=== PATIENT | female | born 1970 | race American Indian/Alaskan Native ===

== ENCOUNTER 2016-11-01 13:53 | Emergency (ER) | payer OTHER ==
[2016-11-01] MEDS ORDERED: TETRACAINE 0.5% OU ONE (20:35)
[2016-11-01] MEDS ORDERED: FUL-GLO OP ONE (20:35)
[2016-11-01 20:47] VITALS: BP 156/98
--- NOTE | 2016-11-01 21:54 | Emergency Department Report ---
HPI - General Chief Complaint: Eye Problems Time Seen by Provider: 11/01/16 20:20 - HPI HPI: 46-year-old female presents today with right eye redness 6 days. Positive for tearing and clumping in the morning. She denies injury or trauma. Tried Clear Eyes without relief. Positive for history of similar symptoms and its pinkeye. Denies sick contacts. Denies pruritus or visual changes. Denies fever, chills, nausea, vomiting, chest pain, shortness of breath, abdominal pain. Patient does not wear contact lenses. ED Past Medical Hx - Past Medical History Hx Hypertension: Yes - Surgical History Past Surgical History?: No - Social History Smoking Status: Never Smoker Substance Use Type: None - Medications Home Medications: Home Medications Medication Instructions Recorded Confirmed Last Taken Type Ofloxacin 0.3% [Ocuflox] 1 - 2 drops OP QID #1 bottle 11/01/16 Unknown Rx ED Review of Systems ROS: Stated complaint: REDNESS RT EYE Other details as noted in HPI Constitutional: denies: chills, fever, malaise Eyes: eye pain, eye discharge. denies: vision change ENT: denies: ear pain, throat pain, congestion Respiratory: denies: cough, shortness of breath, wheezing Cardiovascular: denies: chest pain, palpitations Endocrine: no symptoms reported Gastrointestinal: denies: abdominal pain, nausea, vomiting Neurological: denies: headache, weakness Physical Exam - Physical Exam Vital Signs: Vital Signs 11/01/16 11/01/16 15:43 20:46 Temperature 98.2 F 98 F Pulse Rate 90 90 Respiratory 18 18 Rate Blood Pressure 151/99 Blood Pressure 156/98 [Right] O2 Sat by Pulse 99 97 Oximetry Physical Exam: GENERAL: The patient is well-developed and well-nourished. Patient is in NAD. HEAD: Normocephalic. Atraumatic. EYES: Extraocular motions are intact, PERRL. Positive for right eye conjunctival injection. Minimal tearing noted. EARS: External auditory canals and tympanic membranes clear; hearing grossly intact. NOSE: Normal nasal mucosa with no nasal discharge. THROAT: No erythema, swelling or exudates. NECK: Supple, nontender, without lymphadenopathy. CHEST/LUNGS: Clear to auscultation throughout. HEART/CARDIOVASCULAR: Regular rate and rhythm. ABDOMEN: Abdomen is soft, nontender. No guarding or rebound tenderness. EXTREMITIES:Peripheral pulses intact. Capillary refill less than 2 seconds. NEURO: Alert and oriented x 3. Normal gait. ED Course Vital Signs 11/01/16 11/01/16 15:43 20:46 Temperature 98.2 F 98 F Pulse Rate 90 90 Respiratory 18 18 Rate Blood Pressure 151/99 Blood Pressure 156/98 [Right] O2 Sat by Pulse 99 97 Oximetry - Procedure Description Procedures done: Local anesthesia acquired with 2gtts of tetracaine ophthalmic solution. Fluorescence stain was then applied to the eye for further examination. The eye was visualized using a wood lamp and a small abrasion to the lower left lens was visualized, no foreign body seen. Care instructions and follow up instructions were provided to the patient. ED Medical Decision Making - Lab Data Vital Signs 11/01/16 11/01/16 15:43 20:46 Temperature 98.2 F 98 F Pulse Rate 90 90 Respiratory 18 18 Rate Blood Pressure 151/99 Blood Pressure 156/98 [Right] O2 Sat by Pulse 99 97 Oximetry - Medical Decision Making 46-year-old female presents today with right eye redness 6 days. Patient's eye was stained and visualized under Hood lamp. A small corneal abrasion was noted. Patient tolerated the procedure well. She has been provided with a referral for ophthalmology. Patient is in no acute distress at this time. She will be discharged home and is encouraged to follow up with a primary care provider. She will be sent home on ofloxacin optic drops and is encouraged to return to the emergency room for any worsening symptoms. Critical care attestation.: If time is entered above; I have spent that time in minutes in the direct care of this critically ill patient, excluding procedure time. ED Disposition Clinical Impression: Corneal abrasion Qualifiers: Encounter type: initial encounter Laterality: right Qualified Code(s): S05.01XA - Injury of conjunctiva and corneal abrasion without foreign body, right eye, initial encounter Disposition: DISCHARGED TO HOME OR SELFCARE Is pt being admited?: No Does the pt Need Aspirin: No Condition: Stable Instructions: Corneal Abrasion (ED) Additional Instructions: Follow-up with primary care provider and ophthalmology. Return to the emergency department if symptoms worsen. Prescriptions: Ofloxacin 0.3% [Ocuflox] 1 - 2 drops OP QID #1 bottle Referrals: PRIMARY CARE, [Primary Care Provider] - 3-5 Days JUDD GREGORIO MD [Staff Physician] - 3-5 Days Forms: Work/School Release Form(ED), Accompanied Note Time of Disposition: 22:18
== END 2016-11-01 22:24 | disposition home or self-care (01) ==
LOC: ED 13:53
DX: S05.01XA Injury of conjunctiva and corneal abrasion without foreign body, right eye, initial encounter (principal); I10 Essential (primary) hypertension; X58.XXXA Exposure to other specified factors, initial encounter; Y93.9 Activity, unspecified; Y92.9 Unspecified place or not applicable; Y99.9 Unspecified external cause status
CPT/HCPCS: 99283

== ENCOUNTER 2017-02-22 21:03 | Emergency (ER) | payer OTHER ==
[2017-02-22 22:04] LABS: Eosinophils % (Auto) 3.8 % (0.0-4.3); Hematocrit 41.8 % (30.3-42.9); Hemoglobin 13.2 gm/dl (10.1-14.3); Mean Corpuscular HGB Conc 32 % (30-34); Mean Corpuscular Hemoglobin 24 pg (28-32); Mean Corpuscular Volume 75 fl (79-97); Platelet Count 196 K/mm3 (140-440); Red Cell Distribution Width 18.5 % (13.2-15.2); White Blood Count 6.5 K/mm3 (4.5-11.0)
[2017-02-22 22:20] LABS: Alanine Aminotransferase 17 units/L (7-56); Albumin 4.3 g/dL (3.9-5); Albumin/Globulin Ratio 1.2 %; Alkaline Phosphatase 61 units/L (35-129); Anion Gap 20 mmol/L; BUN/Creatinine Ratio 21.11; Blood Urea Nitrogen 19 mg/dL (7-17); Calcium 9.1 mg/dL (8.4-10.2); Carbon Dioxide 26 mmol/L (22-30); Chloride 100.5 mmol/L (98-107); Glucose 91 mg/dL (65-100); Lipase 17 units/L (13-60); Potassium 3.7 mmol/L (3.6-5.0); Sodium 143 mmol/L (137-145); Total Protein 7.9 g/dL (6.3-8.2)
[2017-02-23 12:56] LABS: Bilirubin,Urine NEG (Negative); Blood,Urine NEG (Negative); Ketones,Urine NEG (Negative); Leukocyte Esterase,Urine NEG (Negative); Nitrite,Urine NEG (Negative); Protein,Urine <15 mg/dL mg/dL (Negative); Urobilinogen,Urine < 2.0 mg/dL (<2.0); WBC,Urine < 1.0 /HPF (0.0-6.0)
[2017-02-23 13:15] VITALS: BP 113/75
--- NOTE | 2017-02-23 14:34 | Emergency Department Report ---
ED General Adult HPI - General Chief complaint: Vaginal Bleeding Stated complaint: FEET PAIN/VAGINAL BLEEDING Time Seen by Provider: 02/23/17 12:29 Source: patient Mode of arrival: Ambulatory Limitations: No Limitations - History of Present Illness Initial comments: Patiet reports some vaginal spotting irregular and right ankle pain. -: Gradual, week(s) Location: lower extremity (right ankle) Radiation: non-radiation Severity scale (0 -10): 2 Quality: aching Consistency: intermittent Improves with: none Worsens with: movement Associated Symptoms: denies: confusion, chest pain, cough, diaphoresis, fever/ chills, headaches, loss of appetite, malaise, nausea/vomiting, rash, seizure, shortness of breath, syncope, weakness - Related Data Previous Rx's Medication Instructions Recorded Last Taken Type Ofloxacin 0.3% [Ocuflox] 1 - 2 drops OP QID #1 bottle 11/01/16 Unknown Rx Ibuprofen [Motrin] 600 mg PO Q8H PRN #15 tablet 02/23/17 Unknown Rx Allergies Allergy/AdvReac Type Severity Reaction Status Date / Time No Known Allergies Allergy Unverified 11/01/16 15:47 ED Review of Systems ROS: Stated complaint: FEET PAIN/VAGINAL BLEEDING Other details as noted in HPI Other: GENERAL: No weight change, fatigue, weakness, fever, chills, or night sweats SKIN: No changes in skin or hair, no itching, no rashes, no jaundice HEAD: No trauma, headache, or visual changes EYES: No blurriness, tearing, itching, acute visual loss, conjunctival discoloration, or scleral icterus EARS: No hearing loss, tinnitus, vertigo, or earache NOSE: No rhinorrhea, stuffiness, sneezing, itching, or epistaxis MOUTH: No bleeding gums, hoarseness, sore throat, or swelling CARDIAC: No new murmur, chest pain, palpitations, dyspnea on exertion, orthopnea , PND, or edema RESPIRATORY: No shortness of breath, wheeze, cough, sputum production, hemoptysis, pneumonia, asthma, bronchitis, or emphysema GI: No change in appetite, nausea, vomiting, dysphagia, change in bowel frequency, diarrhea, constipation, bleeding, hematemesis, melena, hematochezia, or abdominal pain URINARY: No frequency, urgency, polyuria, dysuria, hematuria, or incontinence MUSCULOSKELETAL: Right ankle pain NEUROLOGIC: No loss of sensation, numbness, tingling, tremors, weakness, paralysis, seizures HEMATOLOGIC: No anemia, easy bruising, bleeding, petechiae, or purpura ENDOCRINE: No hot or cold intolerance, sweating, polyuria, polydipsia or, polyphagia no thyroid problems PSYCHIATRIC: No change in mood, no anxiety, no depression GENITAL: Female: change in menstrual regularity ED Past Medical Hx - Past Medical History Previous Medical History?: Yes Hx Hypertension: Yes - Surgical History Past Surgical History?: No - Social History Smoking Status: Never Smoker Substance Use Type: None - Medications Home Medications: Home Medications Medication Instructions Recorded Confirmed Last Taken Type Ofloxacin 0.3% [Ocuflox] 1 - 2 drops OP QID #1 bottle 11/01/16 Unknown Rx Ibuprofen [Motrin] 600 mg PO Q8H PRN #15 tablet 02/23/17 Unknown Rx ED Physical Exam - General Limitations: No Limitations - Other Other exam information: GENERAL: Patient in no acute distress HEAD: Normocephalic, atraumatic EYES: PERRLA, EOM intact, no scleral icterus, no conjunctival hemorrhage, visual curtis and acuity wnl, NOSE: No tenderness, discharge, sinus tenderness MOUTH: No erythema, bleeding, exudate HEART: Regular rate and rhythm, no murmur, S1-S2 are auscultated, pulses are symmetric LUNGS: No wheezing, rales, rhonchi, bilateral breath sounds ABDOMEN: Normal bowel sounds, no tenderness, no rebound, no guarding, no masses , no CVA tenderness MUSCULOSKELETAL: Swelling near right ankle. NEUROLOGIC: GCS 15, Alert and Oriented x3, Cranial nerves intact, normal sensation, normal strength, normal gait, no cerebellar deficit PSYCHIATRIC: No homicidal or suicidal ideation, no anxiety, no depression, no hallucinations SKIN: Skin is warm and dry, no wounds, no rashes ED Course Vital Signs 02/22/17 02/23/17 02/23/17 21:26 04:24 12:05 Temperature 98.5 F 98.0 F 97.8 F Pulse Rate 97 H 88 Respiratory 16 14 Rate Blood Pressure 147/93 Blood Pressure 139/90 [Right] O2 Sat by Pulse 97 100 Oximetry 02/23/17 02/23/17 02/23/17 12:32 12:40 12:50 Temperature Pulse Rate Respiratory Rate Blood Pressure 123/81 123/81 123/79 Blood Pressure [Right] O2 Sat by Pulse 98 99 Oximetry 02/23/17 02/23/17 02/23/17 13:00 13:17 14:03 Temperature 98.4 F Pulse Rate Respiratory 16 Rate Blood Pressure 113/75 Blood Pressure [Right] O2 Sat by Pulse 98 100 Oximetry ED Medical Decision Making - Lab Data Result diagrams: 02/22/17 21:46 02/22/17 21:46 - Radiology Data Radiology results: report reviewed - Medical Decision Making Patient comfortable. Updated with results. Plan discharge with outpatient follow-up. Patient agrees with plan and will return if symptoms worsen. Critical care attestation.: If time is entered above; I have spent that time in minutes in the direct care of this critically ill patient, excluding procedure time. ED Disposition Clinical Impression: Dysfunctional uterine bleeding Muscle strain of ankle Qualifiers: Encounter type: initial encounter Laterality: right Qualified Code(s): S96.911A - Strain of unspecified muscle and tendon at ankle and foot level, right foot, initial encounter Disposition: TO HOME OR SELFCARE Is pt being admited?: No Condition: Undetermined Instructions: Dysfunctional Uterine Bleeding (ED), Muscle Strain (ED) Prescriptions: Ibuprofen [Motrin] 600 mg PO Q8H PRN #15 tablet PRN Reason: Pain Referrals: [facility] [Provider Group] - 3-5 Days [facility] [Outside] - 3-5 Days [facility] [Outside] - 3-5 Days [facility] [Primary Care Provider] - 2-3 Days MARY SUMNER MD [Staff Physician] - 3-5 Days Time of Disposition: 14:40
[2017-02-23] MEDS ORDERED: TORADOL IM ONE (14:44)
--- NOTE | 2017-02-23 15:15 | XRay Report ---
Right ankle 3 views: History: Pain. Findings: Large spur posterior-superior and posterior-inferior calcaneum. Detached spur or old injury subarticular posterior distal tibia. No definite evidence of acute fracture or dislocation. Impression: No acute fracture. Findings as detailed above.
--- NOTE | 2017-02-24 14:42 | Vascular Lab Report ---
LOWER EXTREMITY VENOUS DUPLEX: REASON FOR EXAM: Pain of the lower extremities. COMMENTS ON THE RIGHT: All veins visualized are freely compressible without evidence of internal echogenicity. Flow is spontaneous and phasic throughout. COMMENTS ON THE LEFT: All veins visualized are freely compressible without evidence of internal echogenicity. Flow is spontaneous and phasic throughout. IMPRESSION: No evidence of acute or chronic deep venous thrombosis in either lower extremity.
== END 2017-02-23 16:37 | disposition home or self-care (01) ==
LOC: ED 21:03
DX: N93.8 Other specified abnormal uterine and vaginal bleeding (principal); S96.911A Strain of unspecified muscle and tendon at ankle and foot level, right foot, initial encounter; I10 Essential (primary) hypertension; X58.XXXA Exposure to other specified factors, initial encounter; Y93.89 Activity, other specified; Y92.89 Other specified places as the place of occurrence of the external cause; Y99.8 Other external cause status
CPT/HCPCS: 29515; 36415; 73610; 80053; 81001; 82140; 83690; 84703; 85025; 93970; 96372; 99284; J1885